=== PATIENT | female | born 1970 | race Hispanic/Latino ===

== ENCOUNTER 2024-07-15 15:55 | Emergency (ER) | payer SELFPAY ==
[~2024-07-15] VITALS: Ht 157.5 cm; Wt 54.4 kg
--- NOTE | 2024-07-15 16:11 | EKG ---
[facility] Test Date: 2024-07-15 Test Time: 16:05:29 Pat Name: JANES CORDOBA Department: [facility] Room: Gender: F Vp Cardiovascular: 3229 : 1970 Requested By: PHYLLIS SERRANO Order Number: [id number] Reading MD: Logan Lees Measurements Intervals [place] Rate: 106 P: 52 UT: 131 QRS: 44 QRSD: 86 T: 10 QT: 334 QTc: 445 Interpretive Statements Sinus tachycardia Probable left atrial enlargement No previous ECG available for comparison Electronically Signed On 07-15-2024 16:51:43 REMNANT SORTER by Logan Lees Please click the below link to view image of tracing.
--- NOTE | 2024-07-15 16:31 | ERN ---
ED Note History of Present Illness Stated Complaint: N/V , ABD PAIN X 2 WEEKS Chief Complaint: Nausea,Vomiting,Diarrhea Time Seen by MD: 16:01 Dictation: PATIENT IS A 53-YEAR-OLD FEMALE COMING IN TODAY WITH COMPLAINTS OF EPIGASTRIC PAIN NAUSEA VOMITING AND HAVING DIFFICULTY KEEPING FOOD DOWN FROM TIME TO TIME FOR THE LAST TWO WEEKS. NO FEVER NO CHILLS NO CHEST PAIN NO BACK PAIN NO SOB. STATES SHE HAS BEEN TO [place] SINCE SHE HAS NO DOCTOR IN [place], THEY PRESCRIBED HER MEDICATIONS BUT DID NOT EXPLAINED WHAT WAS WRONG WITH HER. Allergies: Coded Allergies: No Known Allergies (Unverified Allergy, Unknown, 07/15/24) Home Meds Active Scripts Potassium Chloride (K-Dur/Klor-Con) 20 Meq Ertab, 1 TAB PO DAILY for 5 Days, #5 TAB 0 Refills Prov:ALEM WILKINSON BREAD DISTRIBUTOR 07/15/24 Omeprazole (Omeprazole) 40 Mg Capsule.dr, 1 CAP PO DAILY for 30 Days, #30 CAP 0 Refills Prov:ALEM WILKINSON BREAD DISTRIBUTOR 07/15/24 Ondansetron (Ondansetron Odt) 4 Mg Tab.rapdis, 4 MG PO Q6HPRN PRN for nausea, #16 TAB 0 Refills Prov:ALEM WILKINSON BREAD DISTRIBUTOR 07/15/24 Sucralfate (Carafate) 1 Gram Tablet, 1 GM PO ACHS for 10 Days, #40 TAB Prov:ALEM WILKINSON BREAD DISTRIBUTOR 07/15/24 Past Medical History Past Medical History: No Pertinent History Surgical History: Appendectomy PSYCH History: no pertinent psych hx History: Not Applicable LMP: Jun 14, 2024 RN Note Reviewed/Agreed w/PFSH: Yes Review of System Dictation CONSTITUTIONAL: NEGATIVE EXCEPT FOR HPI HEAD/FACE: NEGATIVE EXCEPT FOR HPI EENT: NEGATIVE EXCEPT FOR HPI RESPIRATORY: NEGATIVE EXCEPT FOR HPI GASTROINTESTINAL/ABDOMINAL: NEGATIVE EXCEPT FOR HPI EPIGASTRIC PAIN WITH NAUSEA VOMITING GENITOURINARY: NEGATIVE EXCEPT FOR HPI MUSCULOSKELETAL: NEGATIVE EXCEPT FOR HPI INTEGUMENTARY: NEGATIVE EXCEPT FOR HPI NEUROLOGICAL/PSYCH: NEGATIVE EXCEPT FOR HPI HEMATOLOGIC/LYMPHATIC: NEGATIVE EXCEPT FOR HPI ALL SYSTEMS NEGATIVE, EXCEPT NOTED ABOVE. 13 POINT REVIEW OF SYSTEMS ASSESSED AND ALL NEGATIVE EXCEPT FOR ABOVE. Initial Vital Sign VS Vital Signs Date Time Temp Pulse Resp B/P (MAP) Pulse Ox O2 Delivery O2 Flow Rate FiO2 07/15/24 15:58 98.4 149 18 153/84 98 Room Air 0 07/15/24 16:20 21 Physical Exam Dictation VITAL SIGNS REVIEWED GENERAL APPEARANCE: ALERT, ORIENTED X 3, MILD ACUTE DISTRESS, WELL DEVELOPED, NOURISHED. HEAD AND FACE: NON-TRAUMATIC. EYES: PERRL, PINK CONJUNCTIVAS, EYELID NO TRAUMA, ANTERIOR CHAMBER WITH ARCUS SENILIS. EARS: PINNAS INTACT AND NO SIGNS OF TRAUMA OR ERYTHEMA EAR CANALS CLEAR AND NO DISCHARGE TM NO ERYTHEMA NOSE: NO DISCHARGE, NO BLEEDING. OROPHARYNX: MOUTH NORMAL, TONGUE PINK, PHARYNX CLEAR,NO ERYTHEMA, TONSILS NO EXUDATES, NO ABSCESSES NOTED, MUCOUS MEMBRANE MOIST NECK: SUPPLE, NON-TENDER, NO THYROMEGALY, NO MASSES, NO JVD, NO BRUITS BREAST:DEFERRED CHEST:NO TENDERNESS, NO CREPITUS, NO PARADOXICAL MOVEMENT, NO RETRACTIONS LUNGS:CLEAR, WELL-VENTILATED, SYMMETRIC, NO RALES, NO WHEEZING, NO RHONCHI, NO STRIDOR, GOOD BREATH SOUNDS BILATERALLY HEART: REGULAR RATE, REGULAR RHYTHM, NO MURMUR, NO GALLOPS VASCULAR: NO PERIPHERAL EDEMA, ABDOMEN: SOFT, POSITIVE BOWEL SOUNDS, NONDISTENDED, NO GUARDING, EPIGASTRIC TENDERNESS, NO REBOUND, NO MASSES NO HEPATOMEGALY, NO SPLENOMEGALY, NO ORTEGA'S SIGN, NO HERNIAS. RECTAL: DEFERRED GENITAL: DEFERRED NEUROLOGICAL: NORMAL SPEECH, MOTOR FUNCTION INTACT, SENSORY FUNCTION INTACT MUSCULOSKELETAL: NECK NONTENDER, FULL RANGE OF MOTION, BACK NONTENDER, FULL RANGE OF MOTION, EXTREMITIES: NONTENDER, FULL RANGE OF MOTION SKIN: COLOR PINK, DRY, NO TURGOR, NO RASH, NO LACERATIONS, NO ABRASIONS, NO CONTUSIONS. LYMPHATIC: DEFERRED Results (Laboratory/Radiology) Laboratory/Radiology Laboratory Tests Test 07/15/24 16:36 White Blood Count 8.8 K/uL (4.8-10.8) Red Blood Count 4.52 MIL/uL (4.00-5.50) Hemoglobin 13.0 g/dL (12.0-16.0) Hematocrit 39.2 % (36-48) Mean Corpuscular Volume 86.7 fL (79-99) Mean Corpuscular Hemoglobin 28.8 pg (27.0-33.0) Mean Corpuscular Hemoglobin Concent 33.2 g/dL (32.0-36.0) Red Cell Distribution Width 13.2 % (11.0-15.5) Platelet Count 221 K/uL (130-400) Mean Platelet Volume 12.4 fL (7.5-10.5) H Immature Granulocyte % (Auto) 0.3 % (0-1) Neutrophils (%) (Auto) 62.9 % (40.0-77.0) Lymphocytes (%) (Auto) 26.2 % (21.0-51.0) Monocytes (%) (Auto) 9.8 % (3.0-13.0) Eosinophils (%) (Auto) 0.5 % (0.0-8.0) Basophils (%) (Auto) 0.3 % (0.0-5.0) Neutrophils # (Auto) 5.5 K/uL (1.8-7.7) Lymphocytes # (Auto) 2.3 K/uL (1.0-4.8) Monocytes # (Auto) 0.9 K/uL (0.1-1.0) Eosinophils # (Auto) 0.04 K/uL (0.00-0.70) Basophils # (Auto) 0.03 K/uL (0.00-0.20) Absolute Immature Granulocyte (auto 0.03 K/uL (0-1) Nucleated Red Blood Cells 0.0 % (0.0-0.19) Sodium Level 139 mmol/L (136-145) Potassium Level 3.4 mmol/L (3.5-5.1) L Chloride Level 102 mmol/L (101-111) Carbon Dioxide Level 23 mmol/L (21-32) Blood Urea Nitrogen 8 mg/dL (7-18) Creatinine 0.6 mg/dL (0.5-1.0) Glomerular Filtration Rate Calc 109 mL/min (>90) Random Glucose 88 mg/dL (70-105) Total Calcium 9.3 mg/dL (8.5-10.1) Troponin I High Sensitivity 10 ng/L (4-50) Lipase 47 U/L (16-77) Labs Reviewed?: Yes EKG Comment: [facility] Test Date: 2024-07-15 Test Time: 16:05:29 Pat Name: JANES CORDOBA Department: [facility] Room: Gender: Female Kiln Tester: [id number] : 1970 Requested By: PHYLLIS SERRANO Order Number: [id number] Reading MD: Measurements Intervals [place] Rate: 106 P: 52 [place]: 131 QRS: 44 QRSD: 86 T: 10 QT: 334 QTc: 445 Interpretive Statements Sinus tachycardia Probable left atrial enlargement No previous ECG available for comparison Please click the below link to view image of tracing. ED Course ED Course Orders Procedure Category Date Status Time 12 Lead Ekg Tracing- EKG 07/15/24 Resulted Technical 16:02 Cbc With Differential LAB 07/15/24 Complete 16:27 Famotidine 20mg Vial PHA 07/15/24 Complete (Pepcid 20mg Vial) 16:30 Lipase LAB 07/15/24 Complete 16:27 Basic Metabolic Panel LAB 07/15/24 Complete 16:27 Troponin I High LAB 07/15/24 Complete Sensitivity 16:29 0.9%Nacl 1000ml (Ns PHA 07/15/24 Complete 1000ml) 16:30 Morphine 2mg Syg PHA 07/15/24 Complete (Morphine 2mg Syg) 16:30 Ondansetron 4mg Inj PHA 07/15/24 Complete (Zofran 4mg Inj) 16:30 Current Medications Medications (Trade) Dose Ordered Sig/[place] Route PRN Reason Start Time Stop Time Status Last Admin Dose Admin Famotidine (Pepcid 20mg Vial) 20 mg ONCE ONCE IV 07/15/24 16:30 07/15/24 16:31 DC 07/15/24 16:41 Morphine Sulfate (morPHINE 2MG SYG) 2 mg ONCE ONCE IVP 07/15/24 16:30 07/15/24 16:31 DC 07/15/24 16:41 Ondansetron HCl (zoFRAN 4MG INJ) 4 mg ONCE ONCE IVP 07/15/24 16:30 07/15/24 16:31 DC 07/15/24 16:41 Sodium Chloride 1,000 ml @ 0 mls/hr ONCE ONCE IV 07/15/24 16:30 07/15/24 16:31 DC 07/15/24 16:40 Vital Signs Date Time Temp Pulse Resp B/P (MAP) Pulse Ox O2 Delivery O2 Flow Rate FiO2 07/15/24 17:39 98.4 88 18 137/78 98 Room Air* 0 21 07/15/24 16:20 98.4 118 18 153/84 98 Room Air* 0 21 07/15/24 15:58 98.4 149 18 153/84 98 Room Air 0 1755, PATIENT IS NO LONGER HAVING ANY ABDOMINAL PAIN NAUSEA VOMITING AFTER TREATMENT. SHE WAS ADVISED THAT HER LABS ARE ESSENTIALLY UNREMARKABLE AND NO CARDIAC ETIOLOGY FOR THE SUBSTERNAL PAIN. WE WILL BE DISCHARGED HOME WITH CARAFATE/OMEPRAZOLE/ZOFRAN/GIVEN THE NAME OF DR. ARMENDARIZ. HEART Score Response (Comments) Value History: Low suspicion (0) 0 EKG: Repolarization changes 1 Age: 45-65yrs (+1) 1 Risk Factors: No known risk factors (0) 0 Total 2 Medical Decision Making MDM MDM: DIFFERENTIAL DIAGNOSIS: GASTRITIS, GASTRIC ULCER/ELECTROLYTE IMBALANCE/DEHYDRATION/ACS/AMI/UNCONTROLLED DIABETES RATIONALE: TESTS CONSIDERED AND ORDERED SECONDARY TO SHARED DECISION MAKING INCLUDE: EKG/LABS PREVIOUS OUTSIDE RECORDS REVIEWED: OLD ER VISITS. NONE RISK OF COMPLICATION AND/OR MORBIDITY OR MORTALITY OF PATIENT MANAGEMENT: NONE MEDICATIONS-PER MEDICATION RECONCILIATION NEED FOR HOSPITALIZATION: PATIENT DOES NOT MEET CRITERIA FOR HOSPITALIZATION. NO NEED FOR EMERGENCY MAJOR/MINOR SURGERY: NO THERE ARE NO SOCIAL CONCERNS WITH THIS PATIENT. PRESCRIPTION DRUG MANAGEMENT ZOFRAN/CARAFATE/OMEPRAZOLE PRESCRIPTIONS WILL INCLUDE SYMPTOMATIC CARE PATIENT'S PRIOR EXTERNAL MEDICAL RECORDS FROM OTHER ER VISITS WERE REVIEWED BY ME INDICATED. PRIOR TESTING AND RESULTS FROM PREVIOUS VISITS WERE REVIEWED. PRIOR TESTS WERE TAKEN INTO ACCOUNT WITH MEDICAL DECISION MAKING AND RESOURCE UTILIZATION, INDEPENDENT HISTORIAN/HISTORIANS WERE USED TO OBTAIN COMPLETE MEDICAL HISTORY. I INDEPENDENTLY INTERPRETED THE TEST THAT WERE PERFORMED, RESULTS WERE REVIEWED BY ME AND CONSIDERED FINDINGS ON RADIOLOGY IF ORDERED. MEDICAL MANAGEMENT AND EXAMINATION INTERPRETATION DISCUSSIONS WERE HAD BY ME WITH OTHER QUALIFIED HEALTHCARE PROFESSIONALS INDICATED FOR THE PATIENT'S CARE. DX & DISP Disposition: Discharge Departure Impression: Primary Impression: Acute gastritis Additional Impressions: Nausea & vomiting, Hypokalemia Condition: Stable Scripts Potassium Chloride (K-Dur/Klor-Con) 20 Meq Ertab 1 TAB PO DAILY for 5 Days, #5 TAB 0 Refills Prov: ALEM WILKINSON NP 07/15/24 Omeprazole (Omeprazole) 40 Mg Capsule.dr 1 CAP PO DAILY for 30 Days, #30 CAP 0 Refills Prov: ALEM WILKINSON BREAD DISTRIBUTOR 07/15/24 Ondansetron (Ondansetron Odt) 4 Mg Tab.rapdis 4 MG PO Q6HPRN PRN for nausea, #16 TAB 0 Refills Prov: ALEM WILKINSON BREAD DISTRIBUTOR 07/15/24 Sucralfate (Carafate) 1 Gram Tablet 1 GM PO ACHS for 10 Days, #40 TAB Prov: ALEM WILKINSON BREAD DISTRIBUTOR 07/15/24 Additional Instructions: FOLLOW-UP WITH PRIMARY CARE PROVIDER IN 1 TO 2 DAYS. TAKE MEDICATIONS DIRECTED HERE IN THE EMERGENCY ROOM. OKAY TO CONTINUE HOME MEDICATIONS UNLESS OTHERWISE DISCUSSED DURING YOUR VISIT IN THE EMERGENCY ROOM TODAY. RETURN TO YOUR NEAREST EMERGENCY ROOM IF SYMPTOMS WORSEN OR IF THERE IS NO IMPROVEMENT. CALL 911 IF YOU NEED IMMEDIATE ASSISTANCE. TAKE TYLENOL OR MOTRIN OVER-THE-CO UNTER NEEDED AND IF NO CONTRAINDICATIONS ARE PRESENT. INCREASE ORAL HYDRATION. A WOUND CULTURE OR URINE CULTURE WAS ORDERED HERE IN THE EMERGENCY ROOM DEPARTMENT PLEASE FOLLOW-UP WITH PRIMARY CARE PROVIDER AND ADVISE THEM TO GET REPEAT PORTS FROM OUR FACILITY. IF YOU HAD ANY BARBARA WRAP/SPLINTS THAT WERE APPLIED HERE, PLEASE DO NOT REMOVE THEM UNTIL YOU SEE YOUR PRIMARY CARE OR SPECIALTY. FOLLOW A BLAND DIET WITH WATER FOR FLUIDS ONLY. NO SODA POP, NO SPARKLING WATER, NO ICE TEA, NO ALCOHOL, NO SPICY FOODS, NO CITRUS FRUIT JUICE UNTIL CLEARED BY HOUSE CLEANER, CALL FOR AN APPOINTMENT ON WEDNESDAY. TAKE CARAFATE DIRECTED UNTIL GONE. TAKE OMEPRAZOLE DAILY DIRECTED. Referrals: SELF,REFERRAL (PCP) ROMIE ARMENDARIZ MD Time of Disposition: 17:57 I have reviewed the case, and I agree with, Diagnosis and Plan I performed a substantive portion of the visit. I have reviewed and personally made and approve the management plan that is documented in the notes by myself with [place]/resident. I acknowledged full responsibility for the patient's management plan. ALEM WILKINSON NP Jul 15, 2024 16:31 PYHLLIS SERRANO DO Jul 15, 2024 18:13
[2024-07-15] MEDS: 0.9%NACL 1000ML 1,000 ML IV ONE (16:40)
[2024-07-15] MEDS: FAMOTIDINE 20MG VIAL IV ONE (16:41)
[2024-07-15] MEDS: ondanSETRON 4MG INJ IVP ONE (16:41)
[2024-07-15] MEDS: morPHINE 2 MG SYG IVP ONE (16:41)
[2024-07-15 16:43] LABS: BASOPHILS # (AUTO) 0.03 K/uL (0.00-0.20); BASOPHILS % (AUTO) 0.3 % (0.0-5.0); EOSINOPHILS # (AUTO) 0.04 K/uL (0.00-0.70); EOSINOPHILS % (AUTO) 0.5 % (0.0-8.0); HEMATOCRIT 39.2 % (36-48); IMMATURE GRANULOCYTE ABSOLUTE 0.03 K/uL (0-1); LYMPHOCYTES # (AUTO) 2.3 K/uL (1.0-4.8); LYMPHOCYTES % (AUTO) 26.2 % (21.0-51.0); MEAN CORPUSCULAR HEMOGLOBIN 28.8 pg (27.0-33.0); MEAN CORPUSCULAR HGB CONC 33.2 g/dL (32.0-36.0); MEAN CORPUSCULAR VOLUME 86.7 fL (79-99); MONOCYTES # (AUTO) 0.9 K/uL (0.1-1.0); MONOCYTES % (AUTO) 9.8 % (3.0-13.0); NEUTROPHILS # (AUTO) 5.5 K/uL (1.8-7.7); NEUTROPHILS % (AUTO) 62.9 % (40.0-77.0); PLATELET COUNT (AUTO) 221 K/uL (130-400); RED BLOOD CELL COUNT(AUTO) 4.52 MIL/uL (4.00-5.50); RED CELL DISTRIBUTION WIDTH 13.2 % (11.0-15.5); WHITE BLOOD COUNT (AUTO) 8.8 K/uL (4.8-10.8)
[2024-07-15 16:55] LABS: CREATININE 0.6 mg/dL (0.5-1.0); POTASSIUM 3.4 mmol/L (3.5-5.1)
[2024-07-15] MEDS ORDERED: POTA-192 PO (17:59)
[2024-07-15] MEDS ORDERED: ONDA-243 PO (17:59)
[2024-07-15] MEDS ORDERED: SUCR1TAB28 PO (17:59)
[2024-07-15] MEDS ORDERED: OMEP40CA21 PO (17:59)
[2024-07-15 18:12] VITALS: BP 137/78; PULSE 88; RESP 18; TEMP 98.4; O2SAT 98
== END 2024-07-15 18:13 | disposition home or self-care (01) ==
LOC: EDH 15:55
DX: K29.00 Acute gastritis without bleeding (principal); E87.6 Hypokalemia; Z79.899 Other long term (current) drug therapy; Z90.49 Acquired absence of other specified parts of digestive tract
CPT/HCPCS: 99284; 96374; 96375; 84484; 80048; 83690; 85025; 36415; 93005; J3490; J2270; J7030; J2405